=== PATIENT | male | born 1980 | race African-American/Black ===

== ENCOUNTER 2020-12-21 04:33 | Day surgery (SDC) | payer OTHER ==
[2020-12-19 13:30] VITALS: BMI 36.0
[2020-12-21] MEDS ORDERED: DEXAMETHASONE SOD PHOSPHATE 10 MG/1 ML VIAL ONE (11:02)
[2020-12-21] MEDS ORDERED: ROPIVACAINE HCL 0.5% 30ML VIAL ONE (11:02)
[2020-12-21] MEDS ORDERED: MIDAZOLAM HCL 2 MG/2 ML SINGLE DOSE VIAL ONE ×2 (11:03)
[2020-12-21] MEDS ORDERED: PROPOFOL 20 ML ONE ×2 (11:09)
[2020-12-21] MEDS ORDERED: DEXAMETHASONE SOD PHOSPHATE 4 MG/1 ML VIAL ONE (11:34)
[2020-12-21] MEDS ORDERED: LIDOCAINE HCL/PF 2% SDV 5ML VIAL ONE (11:34)
[2020-12-21] MEDS ORDERED: GLYCOPYRROLATE 0.2 MG/1 ML VIAL ONE (11:34)
[2020-12-21] MEDS ORDERED: ONDANSETRON 4 MG/2 ML VIAL ONE (11:34)
[2020-12-21] MEDS ORDERED: ceFAZolin SODIUM 1 GM VIAL ONE (11:34)
[2020-12-21] MEDS ORDERED: ceFAZolin SODIUM 1 GM VIAL IVPB ONE (11:40)
[2020-12-21] MEDS ORDERED: ONDANSETRON 4 MG/2 ML VIAL IVPUSH PRN (11:52)
[2020-12-21] MEDS ORDERED: oxyCODONE HCL 5 MG TABLET PO PRN (11:52)
[2020-12-21] MEDS ORDERED: LACTATED RINGERS SOLUTION 1,000 ML IV SCH (12:00)
[2020-12-21] MEDS ORDERED: KETOROLAC TROMETHAMINE 30 MG/1 ML VIAL ONE (12:08)
[2020-12-21 15:18] VITALS: BP 129/81; PULSE 65; TEMP 98.1
== END 2020-12-21 15:50 | disposition home or self-care (01) ==
LOC: JASU-SURG 04:33 → EDSTATUS 14:08 → JASU-SURG 15:50
PROVIDERS: ATTEND Orthopaedic Surgery
PROC: 0RHJ44Z Insertion of Internal Fixation Device into Right Shoulder Joint, Percutaneous Endoscopic Approach (ICD-10-PCS; 2020-12-21)
PROC: 0RBJ4ZZ Excision of Right Shoulder Joint, Percutaneous Endoscopic Approach (ICD-10-PCS; 2020-12-21)
PROC: 0LS34ZZ Reposition Right Upper Arm Tendon, Percutaneous Endoscopic Approach (ICD-10-PCS; principal; 2020-12-21 11:00)
DX: M75.21 Bicipital tendinitis, right shoulder (principal); S43.431A Superior glenoid labrum lesion of right shoulder, initial encounter; X58.XXXA Exposure to other specified factors, initial encounter; Y93.9 Activity, unspecified; Y92.9 Unspecified place or not applicable; Y99.9 Unspecified external cause status
CPT/HCPCS: 94760; J1100

== ENCOUNTER 2023-02-11 04:13 | Day surgery (SDC) | payer OTHER ==
[2023-02-08 12:56] VITALS: BMI 39.1
[2023-02-11] MEDS ORDERED: FENTANYL CITRATE/PF 50 MCG/ML VIAL ONE (11:00)
[2023-02-11] MEDS ORDERED: MIDAZOLAM HCL 2 MG/2 ML SINGLE DOSE VIAL ONE ×2 (11:00→11:04)
[2023-02-11] MEDS ORDERED: ONDANSETRON 4 MG/2 ML VIAL ONE (11:02)
[2023-02-11] MEDS ORDERED: DEXAMETHASONE SOD PHOSPHATE 10 MG/1 ML VIAL IVPUSH ONE (11:08)
[2023-02-11] MEDS ORDERED: BUPIVACAINE HCL 0.25% 125 MG/50 ML VIAL NR ONE (11:08)
[2023-02-11] MEDS ORDERED: LIDOCAINE 1% P/F 10 MG/ML VIAL INF ONE (11:08)
[2023-02-11 11:35] VITALS: RESP 20
[2023-02-11 15:24] VITALS: TEMP 97.8
[2023-02-11 15:26] VITALS: BP 123/74; PULSE 68
== END 2023-02-11 15:29 | disposition home or self-care (01) ==
LOC: JASU-SURG 04:13
PROVIDERS: ATTEND Physical Medicine & Rehabilitation
PROC: 3E0R3BZ Introduction of Anesthetic Agent into Spinal Canal, Percutaneous Approach (ICD-10-PCS; 2023-02-11)
PROC: 3E0R33Z Introduction of Anti-inflammatory into Spinal Canal, Percutaneous Approach (ICD-10-PCS; principal; 2023-02-11 11:00)
DX: M54.16 Radiculopathy, lumbar region (principal); M54.50 Low back pain, unspecified
CPT/HCPCS: 76000-TC-FY; J1100

== ENCOUNTER 2023-03-11 04:14 | Day surgery (SDC) | payer OTHER ==
[2023-03-06 18:38] VITALS: BMI 39.4
[2023-03-11 09:18] VITALS: RESP 18
[2023-03-11] MEDS ORDERED: LIDOCAINE HCL/PF 2% SDV 5ML VIAL ONE (11:43)
[2023-03-11] MEDS ORDERED: PROPOFOL 20 ML ONE (11:47)
[2023-03-11] MEDS ORDERED: FENTANYL CITRATE/PF 50 MCG/ML VIAL ONE (11:47)
[2023-03-11] MEDS ORDERED: LIDOCAINE HCL/PF 2% SDV 5ML VIAL INF ONE (11:50)
[2023-03-11] MEDS ORDERED: DEXAMETHASONE SOD PHOSPHATE 10 MG/1 ML VIAL IVPUSH ONE (11:50)
[2023-03-11] MEDS ORDERED: IOHEXOL 180 MG/1 ML ML IJ ONE (11:51)
[2023-03-11 15:31] VITALS: TEMP 97.8
[2023-03-11 15:41] VITALS: BP 124/83; PULSE 60
== END 2023-03-11 13:52 | disposition home or self-care (01) ==
LOC: JASU-SURG 04:14
PROVIDERS: ATTEND Physical Medicine & Rehabilitation
PROC: 3E0R33Z Introduction of Anti-inflammatory into Spinal Canal, Percutaneous Approach (ICD-10-PCS; principal; 2023-03-11 10:30)
DX: M54.12 Radiculopathy, cervical region (principal); M54.2 Cervicalgia
CPT/HCPCS: 76000-TC-FY; J1100